=== PATIENT | male | born 1955 ===

== ENCOUNTER 2019-05-13 10:24 | Observation (INO) | payer OTHER ==
[2019-05-13 10:36] VITALS: BMI 28.5
[2019-05-13] MEDS ORDERED: METOPROLOL TARTRATE 5 MG/5 ML VIAL IVPUSH ONE (11:11)
[2019-05-13] MEDS ORDERED: ASPIRIN 81 MG CHEWABLE TABLETS PO ONE (11:11)
[2019-05-13] MEDS ORDERED: ASPIRIN 325 MG TABLET PO ONE (11:11)
[2019-05-13] MEDS ORDERED: SODIUM CHLORIDE 500 ML IV STA (11:11)
[2019-05-13] MEDS ORDERED: ASPIRIN 325 MG ENTERIC COATED TABLET (FP) ONE (11:30)
[2019-05-13] MEDS ORDERED: ASPIRIN 81 MG CHEWABLE TABLETS ONE (11:40)
--- NOTE | 2019-05-13 11:41 | PDOC ---
Documentation entered by Queenie Lang SCRIBE, acting as scribe for Dario Reynolds MD. Dario Reynolds MD: This documentation has been prepared by the Precious richards Brenda, SCRIBE, under my direction and personally reviewed by me in its entirety. I confirm that the documentation accurately reflects all work, treatment, procedures, and medical decision making performed by me. History of Present Illness - General Chief Complaint: Chest Pain Stated Complaint: CHEST PRESSURE History Source: Patient Exam Limitations: No Limitations - History of Present Illness Initial Comments: 05/13/19 11:17 The patient is a 64 year old male, with a significant PMH of HLD, CAD who presents to the emergency department with palpitations. As per patient, he went to bed fine last night and woke up this morning with his heart racing this morning upon getting out of bed. He states that he felt groggy and unwell, also noting slight shortness of breath and L-sided chest pressure. The patient denies headache and dizziness.Denies diaphoresis. Denies lower extremity edema. Denies fever, chills, nausea, vomiting, diarrhea and constipation. Denies any urinary symptoms. Allergies: NKA Social history: No reported history of smoking. 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 No weakness. HEAD, EYES, EARS, NOSE AND THROAT: No change in vision. No ear pain or discharge. No sore throat. CARDIOVASCULAR: (+) Palpitations. (+) Chest pressure. (+)Shortness of breath. No loss of consciousness RESPIRATORY: No cough, wheezing, or hemoptysis. GASTROINTESTINAL: No nausea, vomiting, diarrhea or constipation. GENITOURINARY: No dysuria, frequency, or change in urination. MUSCULOSKELETAL: No joint or muscle swelling or pain. No neck or back pain. SKIN: No rash NEUROLOGIC: No vertigo, no change in strength/sensation. ENDOCRINE: No increased thirst. No abnormal weight change. HEMATOLOGIC/LYMPHATIC: No anemia, easy bleeding, or history of blood clots. ALLERGIC/IMMUNOLOGIC: No hives or skin allergy. *Physical Exam - Vital Signs Last Vital Signs Temp Pulse Resp BP Pulse Ox 97.8 F 120 H 16 109/71 96 05/13/19 10:32 05/13/19 10:32 05/13/19 10:32 05/13/19 10:32 05/13/19 10:32 - Physical Exam 05/13/19 11:18 GENERAL: Awake, alert, and fully oriented, in no acute distress. HEAD: No signs of trauma EYES: PERRLA, EOMI, sclera anicteric, conjunctiva clear ENT: Auricles normal inspection, hearing grossly normal, nares patent, oropharynx clear without exudates. Moist mucosa NECK: Nontender, no stepoffs, Normal ROM, supple, no lymphadenopathy, JVD, or masses LUNGS: Breath sounds equal, clear to auscultation bilaterally. No wheezes, and no crackles HEART: irregular rate and rhythm, normal S1 and S2, no murmurs, rubs or gallops ABDOMEN: Soft, nontender, normoactive bowel sounds. No guarding, no rebound. No masses EXTREMITIES: Normal range of motion, no edema. No clubbing or cyanosis. No cords, erythema, or tenderness NEUROLOGICAL: Cranial nerves II through XII intact. 5/5 strength and sensation in all extremities, Normal speech, normal gait, normal cerebellar function SKIN: Warm, Dry, normal turgor, no rashes or lesions noted. Heart Score/ECG Review - ECG Impressions Comment:: 05/13/19 11:42 Atrial fibrillation, rate 118, no STEs, ST depressions in lateral leads, TWI in aVL ED Treatment Course - LABORATORY CBC & Chemistry Diagram: 05/13/19 11:15 05/13/19 11:15 Medical Decision Making - Medical Decision Making 05/13/19 11:42 64 M with palpitations, chest pressure. EKG shows new onset afib with RVR. Also with ST depressions laterally, likely rate related. - Labs, trop, BNP, coags - IVF, metoprolol - Admit 12/18/19 14:05 Labs wnl HR improved to 80s after metoprolol 5mg IV and 25mg PO Discharge - Discharge Information Problems reviewed: Yes Clinical Impression/Diagnosis: Atrial fibrillation with rapid ventricular response - Admission Yes - Follow up/Referral - Patient Discharge Instructions - Post Discharge Activity
[2019-05-13] MEDS ORDERED: METOPROLOL TARTRATE 25 MG TABLET (FP) PO ONE (11:43)
[2019-05-13 11:55] LABS: INR 1.04 (0.83-1.09); PROTHROMBIN TIME (PATIENT) 12.3 SEC (9.7-13.0)
[2019-05-13] MEDS ORDERED: METOPROLOL TARTRATE 25 MG TABLET (FP) ONE ×2 (11:58→21:40)
[2019-05-13 11:59] LABS: ACTIVATED PTT 39.3 SECONDS (25.2-36.5)
[2019-05-13 13:05] LABS: ALBUMIN 3.8 g/dl (3.4-5.0); ALK PHOS 70 U/L (45-117); ANION GAP 8 MMOL/L (8-16); CALCIUM 8.9 mg/dL (8.5-10.1); CHLORIDE 108 mmol/L (98-107); CO2 23 mmol/L (21-32); CREATININE 0.8 mg/dL (0.55-1.3); GLUCOSE,RANDOM 151 mg/dL (74-106); N-TERMINAL BNP 72.3 pg/ml (5-125); SGOT/AST 39 U/L (15-37); SGPT/ALT 57 U/L (13-61); SODIUM 139 mmol/L (136-145); TOT PROT 7.4 g/dl (6.4-8.2)
[2019-05-13 13:06] LABS: BILIRUBIN,TOTAL 0.7 mg/dL (0.2-1)
[2019-05-13 13:34] LABS: BASO % 1.3 % (0-2.0); EOS % 4.2 % (0-4.5); HEMATOCRIT 41.9 % (35.4-49); HEMOGLOBIN 14.2 GM/dL (11.7-16.9); LYMPH % 24.8 % (8-40); MCH 32.1 pg (25.7-33.7); MCHC 33.8 g/dl (32.0-35.9); MEAN PLT VOLUME 11.1 fl (7.5-11.1); NEUT % 59.7 % (42.8-82.8); PLATELET COUNT 184 K/MM3 (134-434); RBC 4.41 M/mm3 (4.00-5.60); RDW 13.2 % (11.9-15.9)
--- NOTE | 2019-05-13 13:56 | CON.CARD ---
Consult Consult Specialty:: cardiology Reason for Consultation:: palpitations; chest pain - History of Present Illness Chief Complaint: Pt A&Ox3; no further palpitations; no chest pain or dyspnea. History of Present Illness: he patient is a 64 year old male (frances Mistry), with a significant PMH of HLD, who presents to the emergency department with palpitations. As per patient, he went to bed fine last night and woke up this morning with his heart racing upon getting out of bed. He states that he felt groggy and unwell, also noting slight shortness of breath and L-sided chest pressure. The patient denies headache and dizziness.Denies diaphoresis. Denies lower extremity edema. Denies fever, chills, nausea, vomiting, diarrhea and constipation. Denies any urinary symptoms. Allergies: NKA Social history: No reported history of smoking +2-3 glasses of wine or beer a few times a week. 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 - History Source History Provided By: Patient, Medical Record Limitations to Obtaining History: No Limitations - Past Medical History Cardio/Vascular: Yes: CAD (proximal LAD 60% stenosis (2013 cath)), Hyperlipdemia - Past Surgical History Past Surgical History: Yes: None - Alcohol/Substance Use Hx Alcohol Use: Yes Number of Drinks Daily: 2 History of Substance Use: reports: None - Smoking History Smoking history: Never smoked Home Medications - Allergies Allergies/Adverse Reactions: Allergies Allergy/AdvReac Type Severity Reaction Status Date / Time No Known Allergies Allergy Verified 05/13/19 11:39 - Home Medications Home Medications: Ambulatory Orders Aspirin [ASA -] 81 mg PO DAILY 05/13/19 Atorvastatin Ca [Lipitor] 10 mg PO HS 05/13/19 Family Medical History Family History: Denies Review of Systems - Review of Systems Constitutional: reports: No Symptoms Eyes: reports: No Symptoms HENT: reports: No Symptoms Neck: reports: No Symptoms Cardiovascular: reports: Palpitations Respiratory: reports: No Symptoms Gastrointestinal: reports: No Symptoms Genitourinary: reports: No Symptoms Breasts: reports: No Symptoms Reported Musculoskeletal: reports: No Symptoms Integumentary: reports: No Symptoms Neurological: reports: No Symptoms Endocrine: reports: No Symptoms Hematology/Lymphatic: reports: No Symptoms Psychiatric: reports: No Symptoms - Risk Factors Known Risk Factors: Yes: Age, Gender, Hypercholesterolemia Vital Signs: Vital Signs Temperature 97.8 F 05/13/19 10:32 Pulse Rate 120 H 05/13/19 10:32 Respiratory Rate 16 05/13/19 10:32 Blood Pressure 102/77 05/13/19 11:38 O2 Sat by Pulse Oximetry (%) 96 05/13/19 10:32 Constitutional: Yes: Anxious Eyes: Yes: WNL HENT: Yes: WNL Neck: Yes: WNL Respiratory: Yes: WNL Gastrointestinal: Yes: WNL Renal/: No: Anuria Cardiovascular: Yes: Pulse Irregular JVD: No Carotid Bruit: No PMI: Non-Displaced Heart Sounds: Yes: S1 (varies in intensity), S2 Murmur: Yes: Systolic Murmur, Grade 2 ([id number]) Musculoskeletal: Yes: Muscle Weakness Extremities: Yes: WNL Edema: No Peripheral Pulses WNL: Yes Integumentary: Yes: WNL Neurological: Yes: WNL ...Motor Strength: WNL Psychiatric: Yes: WNL - Other Data Labs, Other Data: CBC, BMP 05/13/19 11:15 05/13/19 11:15 INR, PTT INR 1.04 (0.83-1.09) 05/13/19 11:15 Troponin, BNP 05/13/19 11:15 Troponin I < 0.02 B-Natriuretic Peptide 72.3 Troponin, BNP 05/13/19 11:15 Troponin I < 0.02 B-Natriuretic Peptide 72.3 Abnormal Lab Results 05/13/19 05/13/19 11:15 11:15 PTT (Actin FS) 39.3 H Chloride 108 H BUN 19.0 H Random Glucose 151 H AST 39 H Creatine Kinase 385 H CK-MB (CK-2) 5.6 H Echo: Report Reviewed Ejection Fraction %: LVEF > or = 40 % Imaging - Results Chest X-ray: Image Reviewed EKG: Image Reviewed Other: Report Reviewed (ECHO) Problem List - Problems (1) Atrial fibrillation with rapid ventricular response Assessment/Plan: EKG: AF ECHO: normal LVEF; normal biatrial size; moderate TR; moderately dilated RV with moderately reduced RVEF. TSH: WNL. Plan: Start diltiazem 30 mg q6h for HR control. Start apixaban (increase dose to 10 mg bid until CTA to r/o PE is completed; if no PE, decrease dose to 5 mg bid). F/u EKG serially. F/u TNI serially (1st <0.02; r/u RV infarct). Code(s): I48.91 - UNSPECIFIED ATRIAL FIBRILLATION (2) Mild pulmonic regurgitation and RV dilation by prior echocardiogram Assessment/Plan: See "atrial fibrillation" Code(s): I37.1 - NONRHEUMATIC PULMONARY VALVE INSUFFICIENCY; I51.7 - CARDIOMEGALY (3) Hyperlipidemia Assessment/Plan: on statin; f/u lipid profile. Code(s): E78.5 - HYPERLIPIDEMIA, UNSPECIFIED (4) Elevated troponin Assessment/Plan: Pt with rise in TNI today (<0.02-->0.46). 2018 coronary angiogram: 60% stenosis of the proximal LAD. Pt has been noncompliant to f/u outpatient cardiac visits (last seen 02/2018). Plan: D/C apixaban and start IV heparin in anticipation of coronary angiogram. Increase atorvastatin to 80 mg daily. ASA 81 mg daily; clopidogrel 75 mg daily (with 600 mg bolus prior to angiogram). D/C diltiazem, and start metoprolol tartrate 25 bid. Serial TNI and EKG; pt should be on telemetry monitoring. Code(s): R79.89 - OTHER SPECIFIED ABNORMAL FINDINGS OF BLOOD CHEMISTRY
--- NOTE | 2019-05-13 15:15 | EKG ---
Test Reason : Blood Pressure : / mmHG Vent. Rate : 118 BPM Atrial Rate : 097 BPM P-R Int : 000 ms QRS Dur : 086 ms QT Int : 330 ms P-R-T Axes : 000 018 074 degrees QTc Int : 462 ms ATRIAL FIBRILLATION WITH RAPID VENTRICULAR RESPONSE CANNOT RULE OUT INFERIOR INFARCT , AGE UNDETERMINED ABNORMAL ECG NO PREVIOUS ECGS AVAILABLE Confirmed by LUCRETIA THOMAS MD ([id number]) on 05/13/2019 3:14:38 PM Referred By: Confirmed By:LUCRETIA THOMAS MD
[2019-05-13] MEDS ORDERED: APIXABAN 5 MG TABLET PO SCH (15:40)
--- NOTE | 2019-05-13 15:44 | HP ---
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 Patient states symptoms began this morning. He denies any palliative features. The symptoms became associated with shortness of breath, and left sided chest pressure, prompting his arrival to the Emergency Department. He denies similar symptoms in the past. He admits last visit with marine services technician was last year. He had cardiac catheterization 6 years ago, however stent was not placed due to lack of significant coronary artery occlussion. He had negative MIBI stress test in 02/2018. Denies subjective fevers, chills, abdominal pain, nausea, vomiting. ER course was notable for: (1) EKG reveals Afib with RVR at 118 BPM. 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 lives with . Smoking: denies Alcohol: denies Drugs: denies Allergies No Known Allergies Allergy (Verified 05/13/19 11:39) HOME MEDICATIONS: Home Medications Medication Instructions Recorded Aspirin [ASA -] 81 mg PO DAILY 05/13/19 Atorvastatin Ca [Lipitor] 10 mg PO HS 05/13/19 REVIEW OF SYSTEMS CONSTITUTIONAL: Absent: fever, chills, diaphoresis, generalized weakness, malaise, loss of appetite, weight change HEENT: Absent: rhinorrhea, nasal congestion, throat pain, throat swelling, difficulty swallowing, mouth swelling, ear pain, eye pain, visual changes CARDIOVASCULAR: Admits: chest pain (resolved), palpitations. Absent: syncope, lightheadedness, peripheral edema RESPIRATORY: Absent: cough, shortness of breath, dyspnea with exertion, orthopnea, wheezing, stridor, hemoptysis GASTROINTESTINAL: Absent: abdominal pain, abdominal distension, nausea, vomiting, diarrhea, constipation, melena, hematochezia GENITOURINARY: Absent: dysuria, frequency, urgency, hesitancy, hematuria, flank pain, genital pain MUSCULOSKELETAL: Absent: myalgia, arthralgia, joint swelling, back pain, neck pain SKIN: Absent: rash, itching, pallor HEMATOLOGIC/IMMUNOLOGIC: Absent: easy bleeding, easy bruising, lymphadenopathy, frequent infections ENDOCRINE: Absent: unexplained weight gain, unexplained weight loss, heat intolerance, cold intolerance NEUROLOGIC: Absent: headache, focal weakness or paresthesias, dizziness, unsteady gait, seizure, mental status changes, bladder or bowel incontinence PSYCHIATRIC: Absent: anxiety, depression, suicidal or homicidal ideation, hallucinations. PHYSICAL EXAMINATION Vital Signs - 24 hr 05/13/19 05/13/19 05/13/19 10:32 11:38 14:20 Temperature 97.8 F Pulse Rate 120 H Pulse Rate [ 96 H Apical] Respiratory 16 18 Rate Blood Pressure 109/71 102/77 O2 Sat by Pulse 96 97 Oximetry (%) GENERAL: Awake, alert, and fully oriented, in no acute distress. HEAD: Normal with no signs of trauma. EYES: Pupils equal, round and reactive to light, extraocular movements intact, sclera anicteric, conjunctiva clear. EARS, NOSE, THROAT: Oropharynx clear without exudates. Moist mucous membranes. NECK: Normal range of motion, supple without lymphadenopathy, or JVD. LUNGS: Breath sounds equal, clear to auscultation bilaterally. No wheezes, and no crackles. No accessory muscle use. HEART: Irregular rate and rhythm, normal S1 and S2 with holosystolic murmur appreciated. ABDOMEN: Soft, nontender, not distended, normoactive bowel sounds, no guarding, no rebound tenderness. No hepatomegaly or splenomegaly. MUSCULOSKELETAL: Normal range of motion at all joints. No bony deformities or tenderness. No CVA tenderness. EXTREMITIES: 2+ pulses, warm, well-perfused. No cyanosis. No clubbing. No peripheral edema. NEUROLOGICAL: Cranial nerves II-XII intact. Normal speech. Normal gait. PSYCHIATRIC: Cooperative. Good eye contact. Appropriate mood and affect. SKIN: Warm, dry, normal turgor, no rashes or lesions noted, normal capillary refill. Laboratory Results - last 24 hr 05/13/19 05/13/19 05/13/19 11:15 11:15 11:15 WBC 7.0 RBC 4.41 Hgb 14.2 Hct 41.9 MCV 95.0 MCH 32.1 MCHC 33.8 RDW 13.2 Plt Count 184 MPV 11.1 Absolute Neuts (auto) 4.2 Neutrophils % 59.7 Lymphocytes % 24.8 Monocytes % 10.0 Eosinophils % 4.2 Basophils % 1.3 Nucleated RBC % 0 PT with INR 12.30 INR 1.04 PTT (Actin FS) 39.3 H Sodium 139 Potassium 4.0 Chloride 108 H Carbon Dioxide 23 Anion Gap 8 BUN 19.0 H Creatinine 0.8 Est GFR (CKD-EPI)AfAm 107.89 Est GFR (CKD-EPI)NonAf 93.09 Random Glucose 151 H Calcium 8.9 Total Bilirubin 0.7 AST 39 H ALT 57 Alkaline Phosphatase 70 Creatine Kinase 385 H Creatine Kinase Index 1.4 CK-MB (CK-2) 5.6 H Troponin I < 0.02 B-Natriuretic Peptide 72.3 Total Protein 7.4 Albumin 3.8 TSH 1.02 ASSESSMENT/PLAN: Patient is a 64 year old male with history of hypertension, coronary artery disease presents with complaint of palpitations. New- onset Afib -EKG reveals new onset Afib with RVR at 118BPM -Initial Troponin 0.02. Will trend -CTA negative for pulmonary embolism -Begin Apixiban 5mg PO BID -Rate control with Diltiazem 30mg PO Q6 hours -Cardiac ECHO -Cardiology recommendations (Dr. Lopez) appreciated. Coronary artery disease -Continue Atorvastatin FEN -No IV fluids indicated -Follow BMP, replete as necessary -Sodium controlled diet Prophylaxis -Eliquis 5mg PO BID Disposition -Telemetry observation Addendum: Noted elevation of second troponin to 0.46. Case discussed with Dr. Lopez and decision was made to start Heparin drip, Plavix, (Aspirin was already given in ED), Atorvastatin 80. Diltiazem changed to Metoprolol for rate control. Will continue trending troponins, serial ECGs. Visit type - Emergency Visit Emergency Visit: Yes ED Registration Date: 05/13/19 Care time: The patient presented to the Emergency Department on the above date and was hospitalized for further evaluation of their emergent condition. - New Patient This patient is new to me today: Yes Date on this admission: 05/13/19 - Critical Care Critical Care patient: No ATTENDING PHYSICIAN STATEMENT I saw and evaluated the patient. I reviewed the resident's note and discussed the case with the resident. I agree with the resident's findings and plan as documented. SUBJECTIVE: OBJECTIVE: ASSESSMENT AND PLAN:
[2019-05-13] MEDS ORDERED: APIXABAN 5 MG TABLET ONE (15:52)
[2019-05-13] MEDS ORDERED: dilTIAZem HCL 50 MG/10 ML - 10 ML VIAL IVPUSH PRN (16:00)
--- NOTE | 2019-05-13 16:02 | PN ---
Teaching Attending Note Name of Resident: Aldair Marinelli ATTENDING PHYSICIAN STATEMENT I saw and evaluated the patient. I reviewed the resident's note and discussed the case with the resident. I agree with the resident's findings and plan as documented. SUBJECTIVE: Patient is a 64 year old male with Pmhx of HTN, CAD, presents with complaint of palpitations. Patient's last cardiac cath was 6 years ago with 60% blockage of LAD. patient has no stents at this time, presented with Afib. OBJECTIVE: Vital Signs Temperature 97.8 F 05/13/19 10:32 Pulse Rate 96 H 05/13/19 14:20 Respiratory Rate 18 05/13/19 14:20 Blood Pressure 102/77 05/13/19 11:38 O2 Sat by Pulse Oximetry (%) 97 05/13/19 14:20 GENERAL: The patient is awake, alert, and fully oriented, in no acute distress. HEAD: Normal with no signs of trauma. EYES: PERRL, extraocular movements intact, sclera anicteric, conjunctiva clear. ENT: Ears normal, oropharynx clear without exudates, moist mucous membranes. NECK: Trachea midline, full range of motion, supple. LUNGS: Breath sounds equal, clear to auscultation bilaterally, no wheezes, no crackles, no accessory muscle use. HEART: Regular rate and rhythm, S1, S2 without murmur, rub or gallop. ABDOMEN: Soft, NT,ND, normoactive bowel sounds, no guarding, no rebound, no hepatosplenomegaly, no masses. EXTREMITIES: 2+ pulses, warm, well-perfused, no edema. NEUROLOGICAL: Cranial nerves II through XII grossly intact. Normal speech, gait not observed. PSYCH: Normal mood, normal affect. SKIN: Warm, dry, normal turgor, no rashes or lesions noted CBCD WBC 7.0 K/mm3 (4.0-10.0) 05/13/19 11:15 RBC 4.41 M/mm3 (4.00-5.60) 05/13/19 11:15 Hgb 14.2 GM/dL (11.7-16.9) 05/13/19 11:15 Hct 41.9 % (35.4-49) 05/13/19 11:15 MCV 95.0 fl (80-96) 05/13/19 11:15 MCHC 33.8 g/dl (32.0-35.9) 05/13/19 11:15 RDW 13.2 % (11.9-15.9) 05/13/19 11:15 Plt Count 184 K/MM3 (134-434) 05/13/19 11:15 MPV 11.1 fl (7.5-11.1) 05/13/19 11:15 CMP Sodium 139 mmol/L (136-145) 05/13/19 11:15 Potassium 4.0 mmol/L (3.5-5.1) 05/13/19 11:15 Chloride 108 mmol/L (98-107) H 05/13/19 11:15 Carbon Dioxide 23 mmol/L (21-32) 05/13/19 11:15 Anion Gap 8 MMOL/L (8-16) 05/13/19 11:15 BUN 19.0 mg/dL (7-18) H 05/13/19 11:15 Creatinine 0.8 mg/dL (0.55-1.3) 05/13/19 11:15 Random Glucose 151 mg/dL (74-106) H 05/13/19 11:15 Calcium 8.9 mg/dL (8.5-10.1) 05/13/19 11:15 Total Bilirubin 0.7 mg/dL (0.2-1) 05/13/19 11:15 AST 39 U/L (15-37) H 05/13/19 11:15 ALT 57 U/L (13-61) 05/13/19 11:15 Alkaline Phosphatase 70 U/L (45-117) 05/13/19 11:15 Total Protein 7.4 g/dl (6.4-8.2) 05/13/19 11:15 Albumin 3.8 g/dl (3.4-5.0) 05/13/19 11:15 CARDIAC ENZYMES Creatine Kinase 385 U/L (26-308) H 05/13/19 11:15 Troponin I < 0.02 ng/ml (0.00-0.05) 05/13/19 11:15 Current Medications Generic Name Dose Route Start Last Admin Trade Name Freq PRN Reason Stop Dose Admin Apixaban 5 mg 05/13/19 15:40 Eliquis - PO BID HARDIK Atorvastatin Calcium 10 mg 05/13/19 22:00 Lipitor - PO HS HARDIK Diltiazem HCl 30 mg 05/13/19 18:00 Cardizem - PO Q6HPO HARDIK Diltiazem HCl 5 mg 05/13/19 16:00 Cardizem Injection - IVPUSH ONCE PRN TACHYCARDIA Home Medications Medication Instructions Recorded Aspirin [ASA -] 81 mg PO DAILY 05/13/19 Atorvastatin Ca [Lipitor] 10 mg PO HS 05/13/19 ASSESSMENT AND PLAN: Patient is a 64yo male presented with tachycardia and was found to have new onset Afib #Afib with rvr ; echo, cardio consult, CE q6x 2sets, on cardiz/metoprolol/ eliquis/given aspirin , cardio dr maher #Hx of HTN continue home meds. #Hx of HLD continue lipitor DVT px; Eliquis
--- NOTE | 2019-05-13 16:13 | ECHO ---
Name: GUANAKO DANIELS Exam:Adult Echocardiogram Study Date: 05/13/2019 01:03 PM Age: 64 yrs Reason For Study: ef Height: 72 in Weight: 210 lb BSA: 2.2 m2 MMode/2D Measurements & Calculations RVDd: 3.2 cm Ao root diam: 3.4 cm IVSd: 1.0 cm LA dimension: 3.5 cm LVIDd: 3.8 cm ACS: 1.1 cm LVIDs: 2.1 cm LVPWd: 1.1 cm IVSs: 1.2 cm LVPWs: 1.4 cm EDV(Teich): 62.9 ml ESV(Teich): 13.9 ml LVOT diam: 2.0 cm Doppler Measurements & Calculations MV E max aurora: 94.3 cm/sec Ao V2 max: 232.6 cm/sec MV A max aurora: 31.1 cm/sec Ao max P.7 mmHg MV E/A: 3.0 Ao V2 mean: 160.3 cm/sec Ao mean P.7 mmHg Ao V2 VTI: 42.6 cm YEFRI(I,D): 1.1 cm2 YEFRI(V,D): 1.1 cm2 LV V1 max P.6 mmHg SV(LVOT): 45.0 ml LV V1 mean P.4 mmHg LV V1 max: 80.1 cm/sec LV V1 mean: 53.8 cm/sec LV V1 VTI: 14.4 cm TR max aurora: 200.8 cm/sec PI end-d aurora: 97.7 cm/sec TR max P.8 mmHg RVSP(TR): 26.8 mmHg RAP systole: 10.0 mmHg Procedure A two-dimensional transthoracic echocardiogram with color flow and Doppler was performed. Left Ventricle The left ventricular size, thickness and function are normal. The left ventricular ejection fraction is normal. The left ventricular wall motion is normal. Right Ventricle The right ventricle is moderately dilated. The right ventricular systolic function is moderately redu grecia. Atria Normal left and right atrial size and function. Mitral Valve There is mild mitral valve thickening. There is no mitral valve stenosis. There is trace to mild mitr al regurgitation. Tricuspid Valve There is mild tricuspid valve thickening. There is no tricuspid stenosis. There is moderate tricuspid regurgitation. Right ventricular systolic pressure is elevated at 30-40mmHg. Aortic Valve There is moderate aortic valve thickening. There is mild to moderate aortic sclerosis.;. No hemodynam ically significant valvular aortic stenosis. No aortic regurgitation is present. Pulmonic Valve The pulmonic valve is not well visualized. There is no pulmonic valvular stenosis. Mild pulmonic valv ular regurgitation. Great Vessels The aortic root is normal size. Pericardium/Pleura There is no pericardial effusion. Interpretation Summary The left ventricular size, thickness and function are normal The left ventricular ejection fraction is normal. The left ventricular wall motion is normal. There is moderate aortic valve thickening. There is mild to moderate aortic sclerosis.; There is trace to mild mitral regurgitation. There is moderate tricuspid regurgitation. Right ventricular systolic pressure is elevated at 30-40mmHg. The right ventricle is moderately dilated. The right ventricular systolic function is moderately reduced. MD Ermias Sainz 05/13/2019 04:12 PM
[2019-05-13] MEDS ORDERED: dilTIAZem HCL 30 MG TABLET (FP) ONE (17:43)
[2019-05-13] MEDS ORDERED: dilTIAZem HCL 30 MG TABLET (FP) PO SCH (18:00)
[2019-05-13] MEDS ORDERED: HEPARIN NA (PORCINE) 5,000 UNITS/ML 1ML VIAL IVPUSH PRN ×2 (20:25)
[2019-05-13] MEDS ORDERED: HEPARIN INFUSION - 25,000 UNITS/500 ML INFUS.BAG IVPB SCH (20:30)
[2019-05-13] MEDS ORDERED: CLOPIDOGREL BISULFATE 75 MG TABLET (FP) PO ONE (20:43)
[2019-05-13] MEDS ORDERED: ATORVASTATIN CA 80 MG TABLET (FP) ONE (21:40)
[2019-05-13] MEDS ORDERED: CLOPIDOGREL BISULFATE 75 MG TABLET (FP) ONE (21:40)
[2019-05-13] MEDS ORDERED: HEPARIN INFUSION - 25,000 UNITS/500 ML INFUS.BAG IVPB ONE (21:41)
[2019-05-13] MEDS: METOPROLOL TARTRATE 25 MG TABLET (FP) PO SCH (21:59)
[2019-05-13] MEDS ORDERED: ATORVASTATIN CA 10 MG TABLET (FP) PO SCH (22:00)
[2019-05-13] MEDS ORDERED: ATORVASTATIN CA 80 MG TABLET (FP) PO SCH (22:00)
[2019-05-14 06:47] LABS: HEMATOCRIT 40.9 % (35.4-49); HEMOGLOBIN 14.1 GM/dL (11.7-16.9); MCH 32.4 pg (25.7-33.7); MCHC 34.5 g/dl (32.0-35.9); MEAN CELL VOLUME 93.9 fl (80-96); PLATELET COUNT 178 K/MM3 (134-434); RBC 4.35 M/mm3 (4.00-5.60); RDW 13.1 % (11.9-15.9); WHITE BLOOD COUNT 8.5 K/mm3 (4.0-10.0)
[2019-05-14 07:06] LABS: CHOLESTEROL 167 mg/dL (50-200); HDL CHOLESTEROL 55 mg/dL (40-60); LDL CHOLESTEROL (ONLY SJRH) 91 mg/dL (5-100); TRIGLYCERIDES 128 mg/dL (0-150)
[2019-05-14 07:08] LABS: ALBUMIN 3.7 g/dl (3.4-5.0); BILIRUBIN,TOTAL 0.4 mg/dL (0.2-1); BLOOD UREA NITROGEN 18.3 mg/dL (7-18); CALCIUM 8.8 mg/dL (8.5-10.1); CREATININE 0.8 mg/dL (0.55-1.3); MAGNESIUM 2.2 mg/dL (1.8-2.4); PHOSPHOROUS 3.9 mg/dL (2.5-4.9); POTASSIUM 3.9 mmol/L (3.5-5.1); TOT PROT 6.9 g/dl (6.4-8.2)
--- NOTE | 2019-05-14 08:15 | PN ---
Progress Note, Physician Chief Complaint: A&Ox3; no further chest pain or palpitations. History of Present Illness: he patient is a 64 year old male (frances Fidelia), with a significant PMH of HLD, who presents to the emergency department with palpitations. As per patient, he went to bed fine last night and woke up this morning with his heart racing upon getting out of bed. He states that he felt groggy and unwell, also noting slight shortness of breath and L-sided chest pressure. The patient denies headache and dizziness.Denies diaphoresis. Denies lower extremity edema. Denies fever, chills, nausea, vomiting, diarrhea and constipation. Denies any urinary symptoms. Since right shoulder injury about a year ago, he has been doing much less exercise than in the past, and has put on a significant amount of weight. Allergies: NKA Social history: No history of smoking +2-3 glasses of wine or beer a few times a week. S/p right shoulder surgery x 2 (the latest 03/2019) for "severed tendons" in work-related injury. 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 - Current Medication List Current Medications: Active Medications Aspirin (Asa -) 81 mg PO DAILY [facility] Atorvastatin Calcium (Lipitor -) 80 mg PO HS [facility] Last Admin: 05/13/19 23:06 Dose: Not Given Clopidogrel Bisulfate (Plavix -) 600 mg PO ONCE ONE Stop: 05/14/19 08:04 Clopidogrel Bisulfate (Plavix -) 75 mg PO DAILY [facility] Diltiazem HCl (Cardizem Injection -) 5 mg IVPUSH ONCE PRN PRN Reason: TACHYCARDIA Heparin Sodium (Porcine) (Heparin -) 1,000 unit IVPUSH PRN PRN PRN Reason: Heparin Heparin Sodium (Porcine) (Heparin -) 5,000 unit IVPUSH PRN PRN PRN Reason: Heparin Heparin Sodium/Dextrose (Heparin Infusion -) 25,000 units in 500 mls @ 20 mls/ hr IVPB TITR [facility]; Protocol Last Admin: 05/13/19 23:05 Dose: 1,000 units/hr, 20 mls/hr Metoprolol Tartrate (Lopressor -) 25 mg PO BID [facility] Last Admin: 05/13/19 21:59 Dose: 25 mg - Objective Vital Signs: Vital Signs Temperature 98.4 F 05/14/19 07:15 Pulse Rate 82 05/14/19 07:15 Respiratory Rate 18 05/14/19 07:15 Blood Pressure 117/62 05/14/19 07:15 O2 Sat by Pulse Oximetry (%) 95 05/14/19 07:15 Constitutional: Yes: Anxious Eyes: Yes: WNL HENT: Yes: WNL Neck: Yes: WNL Cardiovascular: Yes: S1 (varies in intensity), S2 Respiratory: Yes: WNL Gastrointestinal: Yes: WNL ...Rectal Exam: Yes: Deferred Genitourinary: No: Anuria Breast(s): Yes: WNL Musculoskeletal: Yes: Joint Stiffness (right shoulder (chronic since injury a year ago)) Extremities: Yes: Other Edema: No Peripheral Pulses WNL: Yes Integumentary: Yes: WNL Neurological: Yes: WNL ...Motor Strength: WNL Psychiatric: Yes: WNL Labs: CBC, BMP 05/14/19 05:50 05/14/19 05:50 INR, PTT INR 1.04 (0.83-1.09) 05/13/19 11:15 Abnormal Lab Results 05/13/19 05/13/19 05/13/19 11:15 11:15 18:18 PTT (Actin FS) 39.3 H Chloride 108 H Anion Gap BUN 19.0 H Random Glucose 151 H AST 39 H Creatine Kinase 385 H 331 H CK-MB (CK-2) 5.6 H 6.3 H Troponin I 0.46 H 05/13/19 05/14/19 05/14/19 23:54 05:50 08:16 PTT (Actin FS) 85.3 H Chloride 110 H Anion Gap 7 L BUN 18.3 H Random Glucose 113 H AST Creatine Kinase CK-MB (CK-2) 4.6 H 3.9 H Troponin I 0.39 H 0.21 H - ....Imaging Other: Image Reviewed (Telemetry: AF; controlled VR) Problem List - Problems (1) Atrial fibrillation with rapid ventricular response Assessment/Plan: EKG: AF ECHO: normal LVEF; normal bi-atrial size; moderate TR; moderately dilated RV with moderately reduced RVEF. TSH: WNL. Plan: TNI increased from 0.02 to 0.46-->0.39-->0.21 (CKMB rel index low). Started metoprolol for HR control. Started apixaban; changed to IV heparin in anticipation of coronary angiogram. F/u EKG serially. Code(s): I48.91 - UNSPECIFIED ATRIAL FIBRILLATION (2) Mild pulmonic regurgitation and RV dilation by prior echocardiogram Assessment/Plan: See "atrial fibrillation" CTA: no PE Code(s): I37.1 - NONRHEUMATIC PULMONARY VALVE INSUFFICIENCY; I51.7 - CARDIOMEGALY (3) Hyperlipidemia Assessment/Plan: on statin; increased to 80 mg daily for ACS. Code(s): E78.5 - HYPERLIPIDEMIA, UNSPECIFIED (4) Elevated troponin Assessment/Plan: Pt with rise in TNI yesterday (<0.02-->0.46-->0.39-->0.21). 2013 coronary angiogram: 60% stenosis of the proximal LAD. Pt has been noncompliant to f/u outpatient cardiac visits (last seen 02/2018). Plan: On IV heparin in anticipation of coronary angiogram. Increased atorvastatin to 80 mg daily. ASA 81 mg daily; clopidogrel 75 mg daily (with 600 mg bolus today). D/C ed diltiazem, and started metoprolol tartrate 25 bid. Serial EKG; for transfer to [facility] today for coronary angiogram by Dr. Lamb. Code(s): R79.89 - OTHER SPECIFIED ABNORMAL FINDINGS OF BLOOD CHEMISTRY
[2019-05-14] MEDS ORDERED: CLOPIDOGREL BISULFATE 300 MG TABLET ONE (08:17)
[2019-05-14] MEDS ORDERED: CLOPIDOGREL BISULFATE 300 MG TABLET PO ONE (08:30)
[2019-05-14] MEDS ORDERED: METOPROLOL TARTRATE 5 MG/5 ML VIAL IVPUSH PRN (08:43)
[2019-05-14] MEDS ORDERED: ASPIRIN 81 MG CHEWABLE TABLETS ONE (09:07)
[2019-05-14] MEDS ORDERED: METOPROLOL TARTRATE 25 MG TABLET (FP) ONE (09:07)
[2019-05-14] MEDS: METOPROLOL TARTRATE 25 MG TABLET (FP) PO SCH (09:10)
[2019-05-14] MEDS ORDERED: CLOPIDOGREL BISULFATE 75 MG TABLET (FP) PO SCH (10:00)
[2019-05-14] MEDS ORDERED: ASPIRIN 81 MG CHEWABLE TABLETS PO SCH (10:00)
--- NOTE | 2019-05-14 11:53 | EKG ---
Test Reason : Blood Pressure : / mmHG Vent. Rate : 087 BPM Atrial Rate : 202 BPM P-R Int : 000 ms QRS Dur : 086 ms QT Int : 350 ms P-R-T Axes : 000 013 023 degrees QTc Int : 421 ms ATRIAL FIBRILLATION ABNORMAL ECG WHEN COMPARED WITH ECG OF 13-MAY-2019 20:58, NO SIGNIFICANT CHANGE WAS FOUND Confirmed by DG GOTTI MD ([id number]) on 05/14/2019 11:52:54 AM Referred By: MIKE BANDA Confirmed By:DG GOTTI MD
--- NOTE | 2019-05-14 11:54 | EKG ---
Test Reason : Blood Pressure : / mmHG Vent. Rate : 083 BPM Atrial Rate : 357 BPM P-R Int : 000 ms QRS Dur : 084 ms QT Int : 346 ms P-R-T Axes : 000 025 043 degrees QTc Int : 406 ms ATRIAL FIBRILLATION NONSPECIFIC T WAVE ABNORMALITY ABNORMAL ECG WHEN COMPARED WITH ECG OF 13-MAY-2019 10:29, NON-SPECIFIC CHANGE IN ST SEGMENT IN INFERIOR LEADS ST ELEVATION HAS REPLACED ST DEPRESSION IN ANTERIOR LEADS Confirmed by ANA MARÍA GUERRA, DG ([id number]) on 05/14/2019 11:54:20 AM Referred By: Confirmed By:DG GOTTI MD
[2019-05-14 11:56] VITALS: BP 130/78; PULSE 67; TEMP 98.3
--- NOTE | 2019-05-14 16:49 | DS ---
Physical Exam: SUBJECTIVE: Patient seen and examined OBJECTIVE: Vital Signs Period Temp Pulse Resp BP Sys/Castaneda Pulse Ox Last 24 Hr 98.3 F-98.4 F 67-82 17-18 110-130/62-88 95-99 PHYSICAL EXAM GENERAL: Awake, alert, and fully oriented, in no acute distress. HEAD: Normal with no signs of trauma. EYES: Pupils equal, round and reactive to light, extraocular movements intact, sclera anicteric, conjunctiva clear. EARS, NOSE, THROAT: Oropharynx clear without exudates. Moist mucous membranes. NECK: Normal range of motion, supple without lymphadenopathy, or JVD. LUNGS: Breath sounds equal, clear to auscultation bilaterally. No wheezes, and no crackles. No accessory muscle use. HEART: Irregular rate and rhythm, normal S1 and S2 with holosystolic murmur appreciated. ABDOMEN: Soft, nontender, not distended, normoactive bowel sounds, no guarding, no rebound tenderness. No hepatomegaly or splenomegaly. MUSCULOSKELETAL: Normal range of motion at all joints. No bony deformities or tenderness. No CVA tenderness. EXTREMITIES: 2+ pulses, warm, well-perfused. No cyanosis. No clubbing. No peripheral edema. NEUROLOGICAL: Cranial nerves II-XII intact. Normal speech. Normal gait. PSYCHIATRIC: Cooperative. Good eye contact. Appropriate mood and affect. SKIN: Warm, dry, normal turgor, no rashes or lesions noted, normal capillary refill. LABS Laboratory Results - last 24 hr 05/13/19 05/13/19 05/14/19 18:18 23:54 05:50 WBC 8.5 RBC 4.35 Hgb 14.1 Hct 40.9 MCV 93.9 MCH 32.4 MCHC 34.5 RDW 13.1 Plt Count 178 MPV 10.0 PTT (Actin FS) Sodium Potassium Chloride Carbon Dioxide Anion Gap BUN Creatinine Est GFR (CKD-EPI)AfAm Est GFR (CKD-EPI)NonAf Random Glucose Hemoglobin A1c % Calcium Phosphorus Magnesium Total Bilirubin AST ALT Alkaline Phosphatase Creatine Kinase 331 H 280 Creatine Kinase Index 1.9 1.6 CK-MB (CK-2) 6.3 H 4.6 H Troponin I 0.46 H 0.39 H Total Protein Albumin Triglycerides Cholesterol Total LDL Cholesterol HDL Cholesterol 05/14/19 05/14/19 05/14/19 05:50 05:50 05:50 WBC RBC Hgb Hct MCV MCH MCHC RDW Plt Count MPV PTT (Actin FS) Sodium 143 Potassium 3.9 Chloride 110 H Carbon Dioxide 27 Anion Gap 7 L BUN 18.3 H Creatinine 0.8 Est GFR (CKD-EPI)AfAm 107.89 Est GFR (CKD-EPI)NonAf 93.09 Random Glucose 113 H Hemoglobin A1c % 5.8 Calcium 8.8 Phosphorus 3.9 Magnesium 2.2 Total Bilirubin 0.4 AST 34 ALT 51 Alkaline Phosphatase 69 Creatine Kinase 259 Creatine Kinase Index 1.5 CK-MB (CK-2) 3.9 H Troponin I 0.21 H Total Protein 6.9 Albumin 3.7 Triglycerides 128 Cholesterol 167 Total LDL Cholesterol 91 HDL Cholesterol 55 05/14/19 08:16 WBC RBC Hgb Hct MCV MCH MCHC RDW Plt Count MPV PTT (Actin FS) 85.3 H Sodium Potassium Chloride Carbon Dioxide Anion Gap BUN Creatinine Est GFR (CKD-EPI)AfAm Est GFR (CKD-EPI)NonAf Random Glucose Hemoglobin A1c % Calcium Phosphorus Magnesium Total Bilirubin AST ALT Alkaline Phosphatase Creatine Kinase Creatine Kinase Index CK-MB (CK-2) Troponin I Total Protein Albumin Triglycerides Cholesterol Total LDL Cholesterol HDL Cholesterol HOSPITAL COURSE: Date of Admission:05/13/19 Date of Discharge: 05/14/19 64 year old male with history of hypertension, coronary artery disease(cath in 2012, proximal LAD stenosis but not at severity that prompted stent) presented with complaint of palpitations. EKG revealed new onset Afib with RVR at 118BPM. CTA chest neg for PE. Echo had normal LV function, moderate TR, RVSP 40mmhg. Troponins 0.02, 0.46, 0.39. Patient complaints resolved. Received Eliquis and diltazem, but Cardio changed to heparin gtt, clopidogrel 75QD, metoprolol 25mg BID in anticipation for coronary cath. Patient transferred out for coronary catheterization. Minutes to complete discharge: 20 Discharge Summary Problems reviewed: Yes Reason For Visit: ARTRIAL FIBRILLATION WITH RAPID Condition: Stable - Instructions Diet, Activity, Other Instructions: transferred for cardiac cath Disposition: TRANSFER ACUTE CARE/OTHER HOSP - Home Medications Comprehensive Discharge Medication List: Ambulatory Orders Aspirin [ASA -] 81 mg PO DAILY 05/13/19 Atorvastatin Ca [Lipitor] 10 mg PO HS 05/13/19 Atorvastatin Ca [Lipitor] 20 mg PO DAILY 05/14/19 This patient is new to me today: No Emergency Visit: No Critical Care patient: No - Discharge Referral Referred to [facility] No ATTENDING PHYSICIAN STATEMENT I saw and evaluated the patient. I reviewed the resident's note and discussed the case with the resident. I agree with the resident's findings and plan as documented. SUBJECTIVE: OBJECTIVE: ASSESSMENT AND PLAN:
--- NOTE | 2019-05-14 17:21 | PN ---
Teaching Attending Note Name of Resident: Jose J Melton ATTENDING PHYSICIAN STATEMENT I saw and evaluated the patient. I reviewed the resident's note and discussed the case with the resident. I agree with the resident's findings and plan as documented. SUBJECTIVE: Patient is a 64 year old male with Pmhx of HTN, CAD, presents with complaint of palpitations. Patient's last cardiac cath was 6 years ago with 60% blockage of LAD. patient has no stents at this time, presented with Afib. No further chest pain or palpitations. OBJECTIVE: Vital Signs Temperature 97.8 F 05/13/19 10:32 Pulse Rate 96 H 05/13/19 14:20 Respiratory Rate 18 05/13/19 14:20 Blood Pressure 102/77 05/13/19 11:38 O2 Sat by Pulse Oximetry (%) 97 05/13/19 14:20 GENERAL: The patient is awake, alert, and fully oriented, in no acute distress. HEAD: Normal with no signs of trauma. EYES: PERRL, extraocular movements intact, sclera anicteric, conjunctiva clear. ENT: Ears normal, oropharynx clear without exudates, moist mucous membranes. NECK: Trachea midline, full range of motion, supple. LUNGS: Breath sounds equal, clear to auscultation bilaterally, no wheezes, no crackles, no accessory muscle use. HEART: Regular rate and rhythm, S1, S2 without murmur, rub or gallop. ABDOMEN: Soft, NT,ND, normoactive bowel sounds, no guarding, no rebound, no hepatosplenomegaly, no masses. EXTREMITIES: 2+ pulses, warm, well-perfused, no edema. NEUROLOGICAL: Cranial nerves II through XII grossly intact. Normal speech, gait not observed. PSYCH: Normal mood, normal affect. SKIN: Warm, dry, normal turgor, no rashes or lesions noted CBCD WBC 7.0 K/mm3 (4.0-10.0) 05/13/19 11:15 RBC 4.41 M/mm3 (4.00-5.60) 05/13/19 11:15 Hgb 14.2 GM/dL (11.7-16.9) 05/13/19 11:15 Hct 41.9 % (35.4-49) 05/13/19 11:15 MCV 95.0 fl (80-96) 05/13/19 11:15 MCHC 33.8 g/dl (32.0-35.9) 05/13/19 11:15 RDW 13.2 % (11.9-15.9) 05/13/19 11:15 Plt Count 184 K/MM3 (134-434) 05/13/19 11:15 MPV 11.1 fl (7.5-11.1) 05/13/19 11:15 CMP Sodium 139 mmol/L (136-145) 05/13/19 11:15 Potassium 4.0 mmol/L (3.5-5.1) 05/13/19 11:15 Chloride 108 mmol/L (98-107) H 05/13/19 11:15 Carbon Dioxide 23 mmol/L (21-32) 05/13/19 11:15 Anion Gap 8 MMOL/L (8-16) 05/13/19 11:15 BUN 19.0 mg/dL (7-18) H 05/13/19 11:15 Creatinine 0.8 mg/dL (0.55-1.3) 05/13/19 11:15 Random Glucose 151 mg/dL (74-106) H 05/13/19 11:15 Calcium 8.9 mg/dL (8.5-10.1) 05/13/19 11:15 Total Bilirubin 0.7 mg/dL (0.2-1) 05/13/19 11:15 AST 39 U/L (15-37) H 05/13/19 11:15 ALT 57 U/L (13-61) 05/13/19 11:15 Alkaline Phosphatase 70 U/L (45-117) 05/13/19 11:15 Total Protein 7.4 g/dl (6.4-8.2) 05/13/19 11:15 Albumin 3.8 g/dl (3.4-5.0) 05/13/19 11:15 CARDIAC ENZYMES Creatine Kinase 385 U/L (26-308) H 05/13/19 11:15 Troponin I < 0.02 ng/ml (0.00-0.05) 05/13/19 11:15 Current Medications Generic Name Dose Route Start Last Admin Trade Name Freq PRN Reason Stop Dose Admin Apixaban 5 mg 05/13/19 15:40 Eliquis - PO BID HARDIK Atorvastatin Calcium 10 mg 05/13/19 22:00 Lipitor - PO HS [facility] Diltiazem HCl 30 mg 05/13/19 18:00 Cardizem - PO Q6HPO [facility] Diltiazem HCl 5 mg 05/13/19 16:00 Cardizem Injection - IVPUSH ONCE PRN TACHYCARDIA Home Medications Medication Instructions Recorded Aspirin [ASA -] 81 mg PO DAILY 05/13/19 Atorvastatin Ca [Lipitor] 10 mg PO HS 05/13/19 ASSESSMENT AND PLAN: Patient is a 64yo male presented with tachycardia and was found to have new onset Afib #Afib with rvr ; rate is controlled now, trop trended up then down ,will tx the patient to [facility], discussed with Yolanda needs a repeat cath sincce has a 60% LAD in the past. on cardiz/metoprolol/eliquis/given aspirin , cardio dr maher, patient is being transferred for cath. today #Hx of HTN continue home meds. #Hx of HLD continue lipitor DVT px; Eliquis
[2019-05-15] MEDS ORDERED: CLOPIDOGREL BISULFATE 75 MG TABLET (FP) PO SCH (10:00)
== END 2019-05-14 12:00 | disposition short-term general hospital (02) ==
LOC: JER 10:24 → INTOOBSV 15:19 → JERBED 15:19
PROVIDERS: ADMIT Internal Medicine; ATTEND Internal Medicine
PROC: 3E033GC Introduction of Other Therapeutic Substance into Peripheral Vein, Percutaneous Approach (ICD-10-PCS; principal; 2019-05-13)
PROC: 3E0337Z Introduction of Electrolytic and Water Balance Substance into Peripheral Vein, Percutaneous Approach (ICD-10-PCS; 2019-05-13)
DX: I48.91 Unspecified atrial fibrillation (principal); I10 Essential (primary) hypertension; I51.7 Cardiomegaly; I37.1 Nonrheumatic pulmonary valve insufficiency; I25.10 Atherosclerotic heart disease of native coronary artery without angina pectoris; E78.5 Hyperlipidemia, unspecified; R77.8 Other specified abnormalities of plasma proteins; Z98.61 Coronary angioplasty status; Z79.82 Long term (current) use of aspirin
CPT/HCPCS: 36415; 71045-TC-FY; 71275-TC; 80053; 80061; 82550; 82553; 83036; 83721; 83735; 83880; 84100; 84443; 84484; 85025; 85027; 85610; 85730; 93005; 93010; 93306-TC; 96374; 99285-25; G0378; J1644; J7030; Q9967